=== PATIENT | female | born 1935 | race Caucasian/White ===

== ENCOUNTER 2016-07-01 02:38 | Emergency (ER) | payer MEDICARE, OTHER ==
[2016-07-01] MEDS ORDERED: POTASSIUM CHLO10 ME2 PO (03:03)
[2016-07-01] MEDS ORDERED: SYNTHROID150 MC1 PO (03:03)
[2016-07-01] MEDS ORDERED: ATORVASTATIN CA20 M1 PO (03:04)
[2016-07-01] MEDS ORDERED: LOSARTAN-HCTZ1 EAC5 PO (03:04)
[2016-07-01] MEDS ORDERED: CARVEDILOL6.25 M1 PO (03:04)
[2016-07-01] MEDS ORDERED: LEVEMIR100 UNITS/ SC (03:05)
[2016-07-01] MEDS ORDERED: HUMULIN R100 UNITS/ SC (03:05)
[2016-07-01] MEDS ORDERED: OS-CAL 500+D31 EAC1 PO (03:05)
[2016-07-01] MEDS ORDERED: NIASPAN500 M1 PO (03:06)
[2016-07-01] MEDS ORDERED: MEGARED OMEGA-1 EAC1 PO (03:06)
[2016-07-01] MEDS ORDERED: VITAMIN C500 M3 PO (03:06)
[2016-07-01] MEDS ORDERED: VITAMIN D31000 UNI3 PO (03:07)
[2016-07-01] MEDS ORDERED: ASPIRIN81 M1 PO (03:07)
[2016-07-01] MEDS ORDERED: IRON18 M1 PO (03:07)
[2016-07-01] MEDS ORDERED: NORCO 5-325 TA1 EACH PO (03:15)
[2016-07-01 03:21] LABS: BASO % 0.2 % (0-2); EOS % 3.7 % (0-7); EOSINOPHIL ABSOLUTE COUNT 0.2 tho/cmm (0.0-0.7); IMMATURE GRANULOCYTES ABSOLUTE 0.02 tho/cmm (0-0.03); IMMATURE GRANULOCYTES PERCENT 0.4 % (0-0.3); LYMPH % 10.9 % (20-45); LYMPH ABSOLUTE COUNT 0.5 tho/cmm (0.8-4.5); MCV (MEAN CELL VOLUME) 85.8 fl (82.0-96.0); MEAN PLATELET VOLUME 9.1 cmc (9.4-12.4); MONO % 9.8 % (0-12); MONOCYTE ABSOLUTE COUNT 0.5 tho/cmm (0.0-1.2); NEUTROPHIL ABSOLUTE COUNT 3.4 tho/cmm (1.6-8.0); NEUTROPHIL-AUTOMATED 3.4 tho/cmm (1.6-8.0); PLATELET COUNT 241 tho/cmm (150-450); RED CELL DISTRIBUTION WIDTH 16.4 % (12.4-16.4); WHITE BLOOD COUNT 4.6 tho/cmm (4.0-10.0)
[2016-07-01 03:32] LABS: ANION GAP 13 mmol/L (0-20); BLOOD UREA NITROGEN 28 mg/dl (6-24); CALCIUM 8.5 mg/dl (8.5-10.5); CARBON DIOXIDE-VENOUS 25 mmol/L (22-32); CHLORIDE 104 mmol/l (96-110); GLUCOSE 85 mg/dL (70-110); POTASSIUM 3.5 mmol/L (3.7-5.1); SODIUM 138 mmol/L (135-145)
[2016-07-01 04:50] LABS: URINE BILIRUBIN NEGATIVE (NEG); URINE BLOOD NEGATIVE (NEG); URINE GLUCOSE (UA) NEGATIVE (NEG); URINE KETONE NEGATIVE (NEG); URINE LEUKOCYTE ESTERASE NEGATIVE (NEG); URINE NITRITE NEGATIVE (NEG); URINE PROTEIN NEGATIVE (NEG); URINE SPECIFIC GRAVITY 1.015 (1.003-1.030)
[2016-07-01 04:51] LABS: URINE APPEARANCE CLEAR; URINE COLOR YELLOW
[2016-07-04 07:45] LABS: HCT-HEMATOCRIT 23.5 % (34.0-49.0); HGB-HEMOGLOBIN 7.7 gm/dl (12.0-15.5); MCH (MEAN CORPUSCULAR HGB) 28.1 pg (28.0-32.0); MCHC MEAN CORPUSCULAR HGB CONC 32.8 % (32.0-36.0); RED BLOOD COUNT 2.74 mil/cmm (4.00-5.20)
[2016-07-04 07:46] LABS: CREATININE 0.94 mg/dl (0.50-1.10)
[2016-07-04 07:47] LABS: eGFR VALUE FOR BLACK 67 mL/Min
== END 2016-07-01 05:30 ==
LOC: EDMED 02:38
PROVIDERS: Physician Assistant
DX: E11.649 Type 2 diabetes mellitus with hypoglycemia without coma (principal); D64.9 Anemia, unspecified; I10 Essential (primary) hypertension; Z79.4 Long term (current) use of insulin; Z79.899 Other long term (current) drug therapy; Z85.3 Personal history of malignant neoplasm of breast; Z85.850 Personal history of malignant neoplasm of thyroid; Z96.641 Presence of right artificial hip joint; Z90.12 Acquired absence of left breast and nipple